=== PATIENT | male | born 1945 | race Caucasian/White ===

== ENCOUNTER → 2021-01-18 | Outpatient (CLI) | payer OTHER, BC ==
[~2021-01-18] MED LIST: ADULT LOW DOSE81 MG; ALTACE; AMBIEN 10 MG TA10 MG; ANDROGEL; AZITHROMYCIN 2250 MG; CLONIDINE HCL0.2 M2 GT; DIAZEPAM 5 MG5 M1; FINASTERIDE5 MG; FISHOIL; FLOMAX PO; HCTZ; K-DUR10 ME1; MULTIVITAMINS; NORCO 5-325 TA1 EACH PO; NORVASC 5 MG TAB5 MG PO; OMEPRAZOLE20 MG; ZANAFLEX2 M1; ZOCOR5 MG PO
== END ==
LOC: NUC 07:00
PROVIDERS: ATTEND Family Medicine
DX: E03.9 Hypothyroidism, unspecified (principal)

== ENCOUNTER → 2021-01-20 | Outpatient (CLI) | payer OTHER, BC | LOC: ULTRA 11:31 | PROVIDERS: ATTEND Otolaryngology Plastic Surgery within the Head & Neck | DX: E21.0 Primary hyperparathyroidism (principal) ==